=== PATIENT | male | born 1980 | race Caucasian/White ===

== ENCOUNTER 2025-05-19 19:26 | Emergency (ER) | payer MEDICARE, MEDICAID, SELFPAY ==
[2025-05-19] VITALS (7 sets, daily range): BP systolic 130–162; BP diastolic 84–101; PULSE 94–113; RESP 16–20; TEMP 36.5; O2SAT 93–99; BMI 35.2
--- NOTE | 2025-05-19 19:26 | EKG12_ITS ---
Test Reason : CP Blood Pressure : */* mmHG Vent. Rate : 104 BPM Atrial Rate : 104 BPM P-R Int : 140 ms QRS Dur : 72 ms QT Int : 350 ms P-R-T Axes : 47 -6 19 degrees QTcB Int : 460 ms Sinus tachycardia Possible Left atrial enlargement Minimal voltage criteria for LVH, may be normal variant ( R in aVL ) Borderline ECG Confirmed by YULY RIVERA, KAREN ([id number]), editor at large MARTIN PORTILLO ([id number]) on 05/20/2025 8:58:24 AM Referred By: THEODORE Confirmed By: KAREN EMERY MD
--- NOTE | 2025-05-19 20:32 | EDS_ITS ---
HPI History of Present Illness Chief Complaint: Back Informant: patient and spouse/S.O. 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 Also history of chronic kidney disease and hypertension. He is on chronic Dilaudid at home for pain. He has been battling this since 2007. He has palliative care physicians and oncologist at the [facility]. Basically today he had an episode of the pain. And he needs something helping with the pain. Since his [place] for his flareups. He denies any nausea or vomiting or diarrhea. He denies any bowel or bladder incontinence. He denies any leg weakness. He denies any fever. He gets flareups like this frequently. Prior similar symptoms: Yes and With Prior Back Pain Recent Illness/Hospitalization: No PFSH PFS Medical History Kidney failure HTN (hypertension) Cancer of kidney Malignant neoplasm of lumbar vertebra Home Medications ?Medication ?Instructions ?Recorded ?Last Taken ?Type amlodipine 10 mg tablet 10 mg PO DAILY 05/19/25 Unkn own History apixaban 5 mg tablet (Eliquis) 5 mg PO BID 05/19/25 Un known History atenolol 50 mg tablet 50 mg PO BID 05/19/25 Unknow n History duloxetine 60 mg capsule,delayed 60 mg PO DAILY Unknown History release sprinkle hydrochlorothiazide 12.5 mg tablet 12.5 mg PO QDAY Unknown History hydromorphone 1 mg/mL oral liquid 5 mg PO Q6H PRN pain 05/19/25 05/19/25 17:30 History hydromorphone 2 mg tablet 2 mg PO Q4H PRN pain 5 Unknown History (Dilaudid) lisinopril 40 mg tablet 40 mg PO DAILY 05/19/25 Unkn own History metformin 1,000 mg tablet 1,000 mg PO BID 05/19/25 Unk nown History nortriptyline 50 mg capsule 100 mg PO QDAY 05/19/25 Un known History omeprazole 40 mg capsule,delayed 40 mg PO DAILY Unknown History release ondansetron 4 mg disintegrating 4 mg PO DAILY 05/19/25 Unknown History tablet ondansetron 4 mg disintegrating 4 mg PO Q6H PRN nausea and vomiting 05/19/25 Unknown History tablet Allergy/AdvReac Type Severity Reaction Status Date / Time acetaminophen (From Percocet) Allergy Hives Verified 05/19/25 21:03 lorazepam (From Ativan) Allergy Shortness Verified 05/19/25 21:03 of breath morphine Allergy Hives Verified 05/19/25 21:03 oxycodone (From Percocet) Allergy Hives Verified 05/19/25 21:03 promethazine (From Phenergan) AdvReac Nausea Verified 05/19/25 21:03 Surgical History Hx of kidney removal Social History Smoking Status: Never smoker ROS ROS ED ROS Narrative Denies recent illness. Constitutional Constitutional ED: Denies chills or fever(s) Eyes Eyes: Denies blurry vision ENT ENT ED: Denies ear pain Cardiovascular Cardiovascular: Denies chest pain Respiratory/Chest Respiratory/Chest: Denies dyspnea Gastrointestinal Gastrointestinal: Denies abdominal pain, constipation, diarrhea, melena, nausea or vomiting Genitourinary Genitourinary ED: Denies dysuria or hematuria Musculoskeletal Musculoskeletal: Reports back pain; Denies arthralgias Integumentary Denies abscess Neurologic Neurologic: Denies headache(s) Psychiatric Psychiatric: Denies anxiety Endocrine Endocrinology: Denies cold intolerance Hematologic/Lymphatic Hematologic/Lymphatic: Denies easy bleeding, easy bruising or lymphadenopathy Allergic/Immunologic Allergic/Immunologic ED: Denies mouth swelling, tongue swelling or urticaria EXAM Physical Exam Narrative Exam Narrative: 45-year-old male lying in bed vital signs stable afebrile. He does not look septic toxic. at bedside. H EENT exam pupils round react light. Moist mutes membranes. Neck nontender JVD. Lungs clear to auscultation bilaterally. Heart regular rhythm rate about 105 no murmur. Chest wall was nontender. Abdomen soft nontender. No peritoneal signs. No distention. No pulsatile mass. Moving all 4 extremities. Normal telephone operator chief strength. Normal dorsi danica ntarflexion. Back nontender. Unremarkable back exam. Normal appearance. Neurologically is awake and alert. Answering questions following commands. Moving all 4 extremities. No cauda equina. Const Vital Signs: 05/19/25 19:27 05/19/25 19:54 05/19/25 20:00 Temperature 97.7 F L Temperature Source Oral Pulse Rate 110 H 105 H Respiratory Rate 20 H 18 Respiratory Effort Short of Breath Labored Respiratory Pattern Bradypnea Blood Pressure 151/101 H 162/98 H Blood Pressure Mean 117 119 Pulse Ox 99 93 Oxygen Delivery Method Room Air Room Air 05/19/25 20:15 05/19/25 21:00 05/19/25 22:00 Temperature Temperature Source Pulse Rate 113 H 112 H 94 Respiratory Rate 20 H 18 16 Respiratory Effort Respiratory Pattern Blood Pressure 142/91 H 135/89 H 135/91 H Blood Pressure Mean 108 104 105 Pulse Ox 94 93 95 Oxygen Delivery Method Room Air Room Air Room Air 05/19/25 23:00 Temperature Temperature Source Pulse Rate 96 Respiratory Rate 17 Respiratory Effort Respiratory Pattern Blood Pressure 130/84 H Blood Pressure Mean 98 Pulse Ox 93 Oxygen Delivery Method Room Air MDM MDM MDM Narrative Medical decision making narrative: 45-year-old male 17-year history of stage IV renal cancer vertebral body metastasis. He is on biologic chemotherapy through the [facility] and has palliative care physicians. He is on chronic pain meds at home. Patient has acute on chronic flare of his back pain. He will be given IV Dilaudid and Zofran. Reassessed. Repeat exam around 9:25 PM. Patient is showing some improvement. Given the second dose of Dilaudid for pain. He requested IV fluids due to recent vomiting. He will be given some ice chips. He is resting more comfortably. Repeat exam patient is appearing uncomfortable of the 7 PM. Ordered as well as dose of Dilaudid be discharged home. He is home Dilaudid that he takes on a scheduled basis. Currently his vital signs are stable. He is afebrile. And he looks improved. Both he and his are card with him being discharged home. History & Record Review Discussion w/independent historian: Patient and Family Additional record(s) reviewed:: No prior records Rhythm Strip Rhythm Strip: Sinus Tach Rate: 104 Ectopy: None EKG Initial EKG: Attestation: I personally reviewed and interpreted this EKG as follows: Interpretation: No Acute Injury Pattern and Sinus Tachycardia Comments: Sinus tachycardia rate of 104 no acute signs of IL or ischemia. Prior: No Prior Discharge Plan Triage Chief Complaint: Back ED Provider: Dallin Buchanan Dx/Rx/DC Orders Clinical Impression: Chronic pain, Metastatic cancer Instructions: ED Chronic Pain Prescriptions: No Action amlodipine 10 mg tablet 10 mg PO DAILY atenolol 50 mg tablet 50 mg PO BID duloxetine 60 mg capsule, delayed rel sprinkle 60 mg PO DAILY Eliquis 5 mg tablet 5 mg PO BID hydrochlorothiazide 12.5 mg tablet 12.5 mg PO QDAY lisinopril 40 mg tablet 40 mg PO DAILY metformin 1,000 mg tablet 1,000 mg PO BID nortriptyline 50 mg capsule 100 mg PO QDAY omeprazole 40 mg capsule,delayed release(DR/EC) 40 mg PO DAILY hydromorphone [Dilaudid] 2 mg tablet 2 mg PO Q4H PRN (Reason: pain) hydromorphone 1 mg/mL liquid 5 mg PO Q6H PRN (Reason: pain) ondansetron 4 mg tablet,disintegrating 4 mg PO DAILY ondansetron 4 mg tablet,disintegrating 4 mg PO Q6H PRN (Reason: nausea and vomiting) Primary Care Provider: MYRON GUILLORY Referrals: [facility] Doctor,Out of [Non-Staff, Medical] - As soon as possible Activity Restrictions/Additional Instructions: Follow-up with your pain management, palliative care and cancer physicians. Print Language: Thai Disposition Disposition: Home, Self Care
[2025-05-19] MEDS: 0.9% Normal Saline (1000mL) 1,000 ML 999 ML IV (21:25)
== END 2025-05-19 23:26 | disposition home or self-care (01) ==
PROVIDERS: Emergency Provider Emergency Medicine; Visit Provider Emergency Medicine
DX: G89.29 Other chronic pain (principal); C79.51 Secondary malignant neoplasm of bone; C64.9 Malignant neoplasm of unspecified kidney, except renal pelvis; I12.9 Hypertensive chronic kidney disease with stage 1 through stage 4 chronic kidney disease, or unspecified chronic kidney disease; Z79.891 Long term (current) use of opiate analgesic; N18.9 Chronic kidney disease, unspecified; M54.9 Dorsalgia, unspecified; Z79.899 Other long term (current) drug therapy; Z92.21 Personal history of antineoplastic chemotherapy
CPT/HCPCS: 93005; 96361; 96374; 96375; 96376; 99285; A4216; J2405